=== PATIENT | female | born 1975 | race Caucasian/White ===

== ENCOUNTER 2017-03-05 22:32 | Emergency (ER) | payer MEDICAID ==
[2017-03-05] MEDS ORDERED: Sodium Chloride 0.9% 1,000 ML IV ONE (23:00)
[2017-03-05] MEDS ORDERED: Ondansetron 4 MG/2 ML SDV IVPUSH ONE (23:02)
[2017-03-05] MEDS ORDERED: HYDROmorphone 2 MG/ML SDV IVPUSH ONE (23:04)
[2017-03-06] MEDS ORDERED: HYDROmorphone 2 MG/ML SDV IM ONE (00:41)
[2017-03-06] MEDS ORDERED: HYDROmorphone 2 MG/ML SDV IVPUSH ONE (00:48)
--- NOTE | 2017-03-06 01:20 | EDM.PDOC ---
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 She saw Dr. Reeder one day ago and she had an ultrasound today on 03-05-17 that showed an ovarian cyst. She is not getting much relief with Ibuprofen and would like something more for pain relief as her ovarian cysts resolve. No urinary tract symptoms, fever or chills and no nausea or vomiting. 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 - Related Data Allergies Allergy/AdvReac Type Severity Reaction Status Date / Time amoxicillin Allergy Hives Verified 03/05/17 22:44 rizatriptan benzoate Allergy Hives Verified 03/05/17 22:44 [From Maxalt] sumatriptan [From Imitrex] Allergy Hives Verified 03/05/17 22:44 sumatriptan succinate Allergy Hives Verified 03/05/17 22:44 [From Imitrex] Home Meds: Home Meds Amphetamine/Dextroamphetamine [Adderall XR] 30 mg PO DAILY 07/22/15 [History] Ibuprofen 600 mg PO TID PRN 07/22/15 [History] Lurasidone [Latuda] 20 mg PO DAILY 07/22/15 [History] Venlafaxine [Effexor XR] 150 mg PO DAILY 07/22/15 [History] Albuterol Sulfate [Proair Hfa] 2 puff IH Q4H PRN 03/03/16 [History] Eletriptan HBr [Relpax] 40 mg PO ASDIRECTED 03/03/16 [History] Past Medical History HEENT History: Reports: Allergic Rhinitis, Impaired Vision Respiratory History: Reports: Asthma, Bronchitis, Recurrent, SOB Gastrointestinal History: Reports: Gastritis, GERD 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 Musculoskeletal History: Reports: Back Pain, Chronic, Fibromyalgia, Other (See Below) Other Musculoskeletal History: SCOLIOSIS, DEGENERATIVE DISK DISEASE, MYALGIA ET MYOSITIS Neurological History: Reports: Migraines, Seizure Psychiatric History: Reports: ADHD, Depression Hematologic History: Reports: Other (See Below) Other Hematologic History: HEMORRHAGIC DIATHESIS - Past Surgical History GI Surgical History: Reports: Hernia, Abdominal, Other (See Below) Musculoskeletal Surgical History: Reports: Arthroscopic Knee, Other (See Below) Social & Family History - Tobacco Use Smoking Status *Q: Current Every Day Smoker Years of Tobacco use: 20 Packs/Tins Daily: 1 Used Tobacco, but Quit: No Second Hand Smoke Exposure: Yes - Caffeine Use Caffeine Use: Reports: Coffee - Alcohol Use Days Per Week of Alcohol Use: 0 Number of Drinks Per Day: 0 Total Drinks Per Week: 0 - Recreational Drug Use Recreational Drug Use: No - Living Situation & Occupation Living situation: Reports: ED ROS GENERAL - Review of Systems Review Of Systems: See Below Constitutional: Reports: No Symptoms HEENT: Reports: No Symptoms Respiratory: Reports: No Symptoms Cardiovascular: Reports: No Symptoms Endocrine: Reports: No Symptoms GI/Abdominal: Reports: Abdominal Pain (As per HPI) : Reports: Hematuria Musculoskeletal: Reports: No Symptoms Skin: Reports: No Symptoms Neurological: Reports: No Symptoms Psychiatric: Reports: No Symptoms Hematologic/Lymphatic: Reports: No Symptoms Immunologic: Reports: No Symptoms ED EXAM, GI/ABD - Physical Exam Exam: See Below Exam Limited By: No Limitations General Appearance: Alert, WD/WN, No Apparent Distress Eyes: Bilateral: Normal Appearance, EOMI Ears: Normal External Exam, Normal Canal, Hearing Grossly Normal, Normal TMs Nose: Normal Inspection, Normal Mucosa, No Blood Throat/Mouth: Normal Inspection, Normal Lips, Normal Teeth, Normal Gums, Normal Oropharynx, Normal Voice, No Airway Compromise Head: Atraumatic, Normocephalic Neck: Normal Inspection, Supple, Non-Tender, Full Range of Motion Respiratory/Chest: No Respiratory Distress, Lungs Clear, Normal Breath Sounds, No Accessory Muscle Use, Chest Non-Tender Cardiovascular: Normal Peripheral Pulses GI/Abdominal Exam: Soft, No Organomegaly, No Distention, No Abnormal Bruit, No Mass, Pelvis Stable, Tender (Over bladder area) Course - Vital Signs Text/Narrative:: Uneventful ED course. She was given a liter bolus of Normal Saline, Zofran IV and IV Dilaudid and that made her pain go away. Her labs were normal and the UA did not show UTI but did show blood from her vaginal bleeding. She will be given Tramadol 50 mg po q 4 hours prn pain and she will also take Ibuprofen 800 mg po q 6 hours and Tylenol 500 mg po q 4 hours. She will follow up with Dr. Stone in 2 days to go over all of her results and to formulate her management plan. Last Recorded V/S: Last Vital Signs Temp 36.2 C 03/05/17 22:35 Pulse 107 H 03/05/17 22:35 Resp 18 03/05/17 22:35 BP 148/103 H 03/05/17 22:35 Pulse Ox 100 03/05/17 22:35 - Orders/Labs/Meds Labs: Laboratory Tests 03/05/17 03/05/17 03/05/17 Range/Units 23:05 23:05 23:05 WBC 6.5 (4.5-12.0) X10-3/uL RBC 4.48 (3.23-5.20) x10(6)uL Hgb 12.2 (11.5-15.5) g/dL Hct 36.7 (30.0-51.3) % MCV 81.9 (80-96) fL MCH 27.1 L (27.7-33.6) pg MCHC 33.1 (32.2-35.4) g/dL RDW 16.6 H (11.5-15.5) % Plt Count 368 (125-369) X10(3)uL MPV 7.5 (7.4-10.4) fL Neut % (Auto) 46.2 (46-82) % Lymph % (Auto) 39.2 H (13-37) % [place] % (Auto) 6.3 (4-12) % Eos % (Auto) 8 H (1.0-5.0) % Baso % (Auto) 1 (0-2) % Neut # (Auto) 3.0 (1.6-8.3) # Lymph # (Auto) 2.6 (0.6-5.0) # [place] # (Auto) 0.4 (0.0-1.3) # Eos # (Auto) 0.5 (0.0-0.8) # Baso # (Auto) 0.0 (0.0-0.2) # Sodium 138 (135-145) mmol/L Potassium 3.2 L (3.5-5.3) mmol/L Chloride 104 (100-110) mmol/L Carbon Dioxide 26 (23-29) mmol/L BUN 12 (5-20) mg/dL Creatinine 0.8 (0.6-1.3) mg/dL Est Cr Clr Drug Dosing TNP Estimated GFR (MDRD) > 60 (>60) BUN/Creatinine Ratio 15.0 (9-20) Glucose 113 (80-116) mg/dL Calcium 8.8 (8.6-10.2) mg/dL Total Bilirubin 0.9 (0.1-1.3) mg/dL AST 15 D (5-27) IU/L ALT 11 L D (14-26) IU/L Alkaline Phosphatase 79 (56-112) IU/L Total Protein 8.1 H (6.0-8.0) g/dL Albumin 4.5 (3.5-5.2) g/dL Globulin 3.6 g/dL Albumin/Globulin Ratio 1.3 HCG, Quant 2 (2.0 - ) mIU/mL Urine Color (YELLOW) Urine Appearance (CLEAR) Urine pH (5.0-6.5) Ur Specific [place] (1.010-1.025) Urine Protein (NEGATIVE) mg/dL Urine Glucose (UA) (NEGATIVE) mg/dL Urine Ketones (NEGATIVE) mg/dL Urine Occult Blood (NEGATIVE) Urine Nitrite (NEGATIVE) Urine Bilirubin (NEGATIVE) Urine Urobilinogen (NEGATIVE) mg/dL Ur Leukocyte Esterase (NEGATIVE) Urine RBC (0) Urine WBC (0) Ur Squamous Epith Cells (NS,R,O) Urine Bacteria (NS) Urine Mucus (NS) 03/06/17 Range/Units 00:22 WBC (4.5-12.0) X10-3/uL RBC (3.23-5.20) x10(6)uL Hgb (11.5-15.5) g/dL Hct (30.0-51.3) % MCV (80-96) fL MCH (27.7-33.6) pg MCHC (32.2-35.4) g/dL RDW (11.5-15.5) % Plt Count (125-369) X10(3)uL MPV (7.4-10.4) fL Neut % (Auto) (46-82) % Lymph % (Auto) (13-37) % [place] % (Auto) (4-12) % Eos % (Auto) (1.0-5.0) % Baso % (Auto) (0-2) % Neut # (Auto) (1.6-8.3) # Lymph # (Auto) (0.6-5.0) # [place] # (Auto) (0.0-1.3) # Eos # (Auto) (0.0-0.8) # Baso # (Auto) (0.0-0.2) # Sodium (135-145) mmol/L Potassium (3.5-5.3) mmol/L Chloride (100-110) mmol/L Carbon Dioxide (23-29) mmol/L BUN (5-20) mg/dL Creatinine (0.6-1.3) mg/dL Est Cr Clr Drug Dosing Estimated GFR (MDRD) (>60) BUN/Creatinine Ratio (9-20) Glucose (80-116) mg/dL Calcium (8.6-10.2) mg/dL Total Bilirubin (0.1-1.3) mg/dL AST (5-27) IU/L ALT (14-26) IU/L Alkaline Phosphatase (56-112) IU/L Total Protein (6.0-8.0) g/dL Albumin (3.5-5.2) g/dL Globulin g/dL Albumin/Globulin Ratio HCG, Quant (2.0 - ) mIU/mL Urine Color Yellow (YELLOW) Urine Appearance Clear (CLEAR) Urine pH 6.0 (5.0-6.5) Ur Specific [place] 1.025 (1.010-1.025) Urine Protein Negative (NEGATIVE) mg/dL Urine Glucose (UA) Normal (NEGATIVE) mg/dL Urine Ketones 15 H (NEGATIVE) mg/dL Urine Occult Blood Large H (NEGATIVE) Urine Nitrite Negative (NEGATIVE) Urine Bilirubin Negative (NEGATIVE) Urine Urobilinogen Normal (NEGATIVE) mg/dL Ur Leukocyte Esterase Negative (NEGATIVE) Urine RBC 10-20 H (0) Urine WBC 0-5 (0) Ur Squamous Epith Cells Moderate H (NS,R,O) Urine Bacteria Moderate H (NS) Urine Mucus Few H (NS) Meds: Medications Discontinued Medications Generic Name Dose Route Start Last Admin Trade Name Freq PRN Reason Stop Dose Admin Hydromorphone HCl 0.5 mg 03/05/17 23:04 03/05/17 23:44 Dilaudid IVPUSH 03/05/17 23:05 0.5 mg ONETIME ONE Administration Hydromorphone HCl 0.5 mg 03/06/17 00:48 03/06/17 00:48 Dilaudid IVPUSH 03/06/17 00:49 0.5 mg ONETIME ONE Administration Sodium Chloride 1,000 mls @ 1,000 mls/hr 03/05/17 23:00 03/05/17 23:43 Normal Saline IV 03/05/17 23:59 1,000 mls/hr .BOLUS ONE Administration Ondansetron HCl 4 mg 03/05/17 23:02 03/05/17 23:45 Zofran IVPUSH 03/05/17 23:03 4 mg ONETIME ONE Administration Departure - Departure Time of Disposition: 01:32 Disposition: Home, Self-Care 01 Condition: Good Clinical Impression: Ruptured ovarian cyst, Vaginal bleeding problems - Discharge Information Referrals: Gianfranco Anaya MD [Primary Care Provider] -
[2017-03-06] MEDS ORDERED: traMADol 50 MG Tab PO ONE (01:21)
[2017-03-06 05:31] VITALS: BP 151/99
== END 2017-03-06 01:44 | disposition home or self-care (01) ==
LOC: FB.ED 22:32
DX: N83.209 Unspecified ovarian cyst, unspecified side (principal); N93.9 Abnormal uterine and vaginal bleeding, unspecified; F17.210 Nicotine dependence, cigarettes, uncomplicated; F32.9 Major depressive disorder, single episode, unspecified; G43.909 Migraine, unspecified, not intractable, without status migrainosus; K21.9 Gastro-esophageal reflux disease without esophagitis; K29.70 Gastritis, unspecified, without bleeding; J45.909 Unspecified asthma, uncomplicated; Z88.1 Allergy status to other antibiotic agents; Z88.8 Allergy status to other drugs, medicaments and biological substances; Z79.899 Other long term (current) drug therapy; R10.2 Pelvic and perineal pain
CPT/HCPCS: 36415; 76830; 76857; 80053; 81001; 84702; 85025; 96361; 96374; 96375; 96376; 99283; A9270; J1170; J2405; J7040

== ENCOUNTER 2017-03-07 15:07 | Emergency (ER) | payer MEDICAID ==
[2017-03-07] MEDS ORDERED: traMADol 50 MG Tab PO ONE ×2 (15:08→15:29)
--- NOTE | 2017-03-07 15:20 | EDM.PDOC ---
ED HPI GENERAL MEDICAL PROBLEM - General Stated Complaint: STOMACH PAIN Time Seen by Provider: 03/07/17 15:19 Source of Information: Reports: Patient History Limitations: Reports: No Limitations - History of Present Illness INITIAL COMMENTS - FREE TEXT/NARRATIVE: 41 yo F who was seen 2 days ago and evaluated for lower abdominal pain that was deemed secondary to ovarian cyst. She was given some tramadol for pain which apparently helped with her pain. Presented to the ER today with Lower abdominal pain which she rates as 6/10. He intends to follow up in clinic tomorrow. No nausea or vomiting. Denied any fever. Presented to the ER on account of worsening of symptoms Onset: Gradual Duration: Day(s): (ongoing for the past 3-5 days) Location: Reports: Abdomen, Pelvis Quality: Reports: Ache Severity: Moderate Improves with: Reports: None Worsens with: Reports: None Associated Symptoms: Reports: No Other Symptoms - Related Data Allergies Allergy/AdvReac Type Severity Reaction Status Date / Time amoxicillin Allergy Hives Verified 03/07/17 15:22 rizatriptan benzoate Allergy Hives Verified 03/07/17 15:22 [From Maxalt] sumatriptan [From Imitrex] Allergy Hives Verified 03/07/17 15:22 sumatriptan succinate Allergy Hives Verified 03/07/17 15:22 [From Imitrex] Home Meds: Home Meds Amphetamine/Dextroamphetamine [Adderall XR] 30 mg PO DAILY 07/22/15 [History] Ibuprofen 600 mg PO TID PRN 07/22/15 [History] Lurasidone [Latuda] 20 mg PO DAILY 07/22/15 [History] Venlafaxine [Effexor XR] 150 mg PO DAILY 07/22/15 [History] Albuterol Sulfate [Proair Hfa] 2 puff IH Q4H PRN 03/03/16 [History] Eletriptan HBr [Relpax] 40 mg PO ASDIRECTED 03/03/16 [History] Past Medical History HEENT History: Reports: Allergic Rhinitis, Impaired Vision Respiratory History: Reports: Asthma, Bronchitis, Recurrent, SOB Gastrointestinal History: Reports: Gastritis, GERD 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 Musculoskeletal History: Reports: Back Pain, Chronic, Fibromyalgia, Other (See Below) Other Musculoskeletal History: SCOLIOSIS, DEGENERATIVE DISK DISEASE, MYALGIA ET MYOSITIS Neurological History: Reports: Migraines, Seizure Psychiatric History: Reports: ADHD, Depression Hematologic History: Reports: Other (See Below) Other Hematologic History: HEMORRHAGIC DIATHESIS - Past Surgical History GI Surgical History: Reports: Hernia, Abdominal, Other (See Below) Musculoskeletal Surgical History: Reports: Arthroscopic Knee, Other (See Below) Social & Family History - Tobacco Use Smoking Status *Q: Current Every Day Smoker Years of Tobacco use: 20 Packs/Tins Daily: 1 Used Tobacco, but Quit: No Second Hand Smoke Exposure: Yes - Caffeine Use Caffeine Use: Reports: Coffee - Alcohol Use Days Per Week of Alcohol Use: 0 Number of Drinks Per Day: 0 Total Drinks Per Week: 0 - Recreational Drug Use Recreational Drug Use: No - Living Situation & Occupation Living situation: Reports: ED ROS GENERAL - Review of Systems Review Of Systems: ROS reveals no pertinent complaints other than HPI. ED EXAM, GI/ABD - Physical Exam Exam: See Below Exam Limited By: No Limitations General Appearance: Alert, WD/WN, No Apparent Distress Eyes: Bilateral: EOMI Ears: Normal External Exam, Normal Canal, Hearing Grossly Normal, Normal TMs Nose: Normal Inspection, Normal Mucosa Throat/Mouth: Normal Inspection, Normal Lips, Normal Teeth, Normal Gums Head: Atraumatic, Normocephalic Neck: Normal Inspection, Supple, Non-Tender, Full Range of Motion Respiratory/Chest: No Respiratory Distress, Lungs Clear, Normal Breath Sounds Cardiovascular: Normal Peripheral Pulses, Regular Rate, Rhythm, No Edema, No Gallop, No JVD GI/Abdominal Exam: No Organomegaly, No Distention, No Abnormal Bruit, No Mass, Pelvis Stable, Tender Back Exam: Normal Inspection, Full Range of Motion Extremities: Normal Inspection, Normal Range of Motion, Non-Tender, No Pedal Edema Neurological: Alert, Oriented, CN II-XII Intact, Normal Cognition Psychiatric: Normal Affect, Normal Mood Skin Exam: Warm, Intact, Normal Color Lymphatic: No Adenopathy Course - Orders/Labs/Meds Meds: Medications Discontinued Medications Generic Name Dose Route Start Last Admin Trade Name Freq PRN Reason Stop Dose Admin Tramadol HCl 50 mg 03/07/17 15:29 Ultram PO 03/07/17 15:30 ONETIME ONE Departure - Departure Time of Disposition: 15:35 Disposition: Home, Self-Care 01 Clinical Impression: Abdominal pain Qualifiers: Abdominal location: lower abdomen, unspecified Qualified Code(s): R10.30 - Lower abdominal pain, unspecified - Discharge Information Instructions: Abdominal Pain, Adult, [id number] Referrals: Gianfranco Anaya MD [Primary Care Provider] - Forms: ED Department Discharge Additional Instructions: Follow with PCP Tramadol for pain Return if symptoms worsen Call your Physician or Return to Emergency Department if: * Your condition worsens in any way. * You develop fever greater than 100.4. * You have vomitting that does not stop with medications. * You have pain that is not controlled with medications.
[2017-03-07 15:40] VITALS: BP 140/92
== END 2017-03-07 15:48 | disposition home or self-care (01) ==
LOC: FB.ED 15:07
DX: R10.30 Lower abdominal pain, unspecified (principal); J45.909 Unspecified asthma, uncomplicated; K21.9 Gastro-esophageal reflux disease without esophagitis; G43.909 Migraine, unspecified, not intractable, without status migrainosus; F32.9 Major depressive disorder, single episode, unspecified; F17.210 Nicotine dependence, cigarettes, uncomplicated; Z88.8 Allergy status to other drugs, medicaments and biological substances; Z88.1 Allergy status to other antibiotic agents; Z79.899 Other long term (current) drug therapy
CPT/HCPCS: 99283; A9270

== ENCOUNTER 2017-04-21 14:22 | Emergency (ER) | payer MEDICAID ==
--- NOTE | 2017-04-21 14:35 | EDM.PDOC ---
ED HPI GENERAL MEDICAL PROBLEM - General Stated Complaint: POST OP PAIN Time Seen by Provider: 04/21/17 14:22 Source of Information: Reports: Patient History Limitations: Reports: No Limitations - History of Present Illness INITIAL COMMENTS - FREE TEXT/NARRATIVE: 41 y.o.w.f came to the ed with family due to gen abdominal pain, more so on the lower abd, after a hysterectomy last wednesday at [facility]. Pt received 30 tabl of [place] and she took those every 4 hours. 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 No N/V/D or dizziness or any other acute medial issues. BP 132/90 RR 17 pulse 105 temp 36.2 Pulse ox 97 Onset: Today Onset Date: 04/16/17 Onset Time: 08:00 Duration: Day(s):, Intermittent Location: Reports: Abdomen, Generalized Quality: Reports: Dull, Pressure, Same as Previous Episode Severity: Moderate Improves with: Reports: Rest Worsens with: Reports: Movement Context: Reports: Other (S/) Associated Symptoms: Reports: No Other Symptoms Vaginal Pain Score (Numeric/FACES): 7 - Related Data Allergies Allergy/AdvReac Type Severity Reaction Status Date / Time amoxicillin Allergy Hives Verified 04/21/17 15:05 rizatriptan benzoate Allergy Hives Verified 04/21/17 15:05 [From Maxalt] sumatriptan [From Imitrex] Allergy Hives Verified 04/21/17 15:05 sumatriptan succinate Allergy Hives Verified 04/21/17 15:05 [From Imitrex] Home Meds: Home Meds Venlafaxine [Effexor XR] 150 mg PO DAILY 07/22/15 [History] Albuterol Sulfate [Proair Hfa] 2 puff IH Q4H PRN 03/03/16 [History] Acetaminophen/HYDROcodone [[place] 325-5 MG] 1 tab PO Q4H PRN #10 tab 04/21/17 [Rx ] Azithromycin [IJD: Azithromycin] 250 mg PO ASDIRECTED 04/21/17 [History] Past Medical History HEENT History: Reports: Allergic Rhinitis, Impaired Vision Respiratory History: Reports: Asthma, Bronchitis, Recurrent, SOB Gastrointestinal History: Reports: Gastritis, GERD 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: Endometriosis Musculoskeletal History: Reports: Back Pain, Chronic, Fibromyalgia, Other (See Below) Other Musculoskeletal History: SCOLIOSIS, DEGENERATIVE DISK DISEASE, MYALGIA ET MYOSITIS Neurological History: Reports: Migraines, Seizure Psychiatric History: Reports: ADHD, Depression Hematologic History: Reports: Other (See Below) Other Hematologic History: HEMORRHAGIC DIATHESIS - Past Surgical History GI Surgical History: Reports: Hernia, Abdominal, Other (See Below) Musculoskeletal Surgical History: Reports: Arthroscopic Knee, Other (See Below) Social & Family History - Tobacco Use Smoking Status *Q: Current Every Day Smoker Years of Tobacco use: 20 Packs/Tins Daily: 1 Used Tobacco, but Quit: No Second Hand Smoke Exposure: Yes - Caffeine Use Caffeine Use: Reports: Coffee - Alcohol Use Days Per Week of Alcohol Use: 0 Number of Drinks Per Day: 0 Total Drinks Per Week: 0 - Recreational Drug Use Recreational Drug Use: No - Living Situation & Occupation Living situation: Reports: ED ROS GENERAL - Review of Systems Review Of Systems: See Below Constitutional: Reports: No Symptoms HEENT: Reports: No Symptoms Respiratory: Reports: No Symptoms Cardiovascular: Reports: No Symptoms Endocrine: Reports: No Symptoms GI/Abdominal: Reports: Abdominal Pain (lower abd. ) : Reports: No Symptoms Musculoskeletal: Reports: No Symptoms Skin: Reports: No Symptoms Neurological: Reports: No Symptoms Psychiatric: Reports: No Symptoms Hematologic/Lymphatic: Reports: No Symptoms Immunologic: Reports: No Symptoms ED EXAM, GI/ABD - Physical Exam Exam: See Below Exam Limited By: No Limitations General Appearance: Alert, WD/WN, Mild Distress Eyes: Bilateral: Normal Appearance Ears: Normal External Exam Nose: Normal Inspection Throat/Mouth: Normal Inspection Head: Atraumatic, Normocephalic Neck: Normal Inspection Respiratory/Chest: No Respiratory Distress, Lungs Clear, Normal Breath Sounds, No Accessory Muscle Use, Chest Non-Tender Cardiovascular: Normal Peripheral Pulses, Regular Rate, Rhythm, No Edema, No Gallop, No JVD, No Murmur GI/Abdominal Exam: Abnormal Bowel Sounds (hypoactive) (Female) Exam: Deferred Rectal (Female) Exam: Deferred Back Exam: Normal Inspection Extremities: Normal Inspection, Normal Range of Motion, Non-Tender, No Pedal Edema Neurological: Alert, Oriented, CN II-XII Intact, Normal Cognition, Normal Gait Psychiatric: Normal Affect, Normal Mood Skin Exam: Warm, Dry, Intact, Normal Color, Other (well healing surgical wounds) Lymphatic: No Adenopathy Course - Vital Signs Text/Narrative:: 41 y.o.w.f came to the ed with family due to gen abdominal pain, more so on the lower abd, after a hysterectomy last wednesday at [facility]. Pt received 30 tabl of [place] and she took those every 4 hours. 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 No N/V/D or dizziness or any other acute medial issues. BP 132/90 RR 17 pulse 105 temp 36.2 Pulse ox 97 PE: [place] obese.Nl BS, lower ab. tenderness, well healing surgical wounds Imaging: Abd flat/upright: No constipation NAD as per RAD Labs: UA neg for uti. Impression: Abd wall pain after Hysterectomy Tx: No pain meds given in the ed Plan: D/C with instructions Last Recorded V/S: Last Vital Signs Temp 36.5 C 04/21/17 15:09 Pulse 100 04/21/17 16:44 Resp 18 04/21/17 15:09 BP 128/78 04/21/17 16:44 Pulse Ox 96 04/21/17 15:09 - Orders/Labs/Meds Orders: Active Orders 24 hr Category Date Time Status Abdomen 2V AP Flat Upright [CR] Stat Exams 04/21/17 14:33 Taken Labs: Laboratory Tests 04/21/17 Range/Units 14:58 Urine Color Yellow (YELLOW) Urine Appearance Clear (CLEAR) Urine pH 7.0 H (5.0-6.5) Ur Specific [place] 1.010 (1.010-1.025) Urine Protein Negative (NEGATIVE) mg/dL Urine Glucose (UA) Normal (NEGATIVE) mg/dL Urine Ketones Negative (NEGATIVE) mg/dL Urine Occult Blood Negative (NEGATIVE) Urine Nitrite Negative (NEGATIVE) Urine Bilirubin Negative (NEGATIVE) Urine Urobilinogen Normal (NEGATIVE) mg/dL Ur Leukocyte Esterase Negative (NEGATIVE) Urine RBC 0-5 (0) Urine WBC 0-5 (0) Ur Squamous Epith Cells Moderate H (NS,R,O) Urine Bacteria Moderate H (NS) Urine Mucus Moderate H (NS) Departure - Departure Time of Disposition: 16:34 Disposition: Home, Self-Care 01 Condition: Good Clinical Impression: H/O: hysterectomy, Abdominal wall pain in both lower quadrants - Discharge Information Prescriptions: Acetaminophen/HYDROcodone [[place] 325-5 MG] 1 tab PO Q4H PRN #10 tab PRN Reason: for severe pain only Instructions: Acetaminophen; Hydrocodone tablets or capsules Referrals: Gianfranco Anaya MD [Primary Care Provider] - Forms: ED Department Discharge Additional Instructions: Please f/u with your PMD/Surgeon, increase water intake, tylenol/motrin for moderate pain, [place] for severe pain only. Please come back if your symptoms get acutely worse. - My Orders Last 24 Hours: My Active Orders 04/21/17 14:33 Abdomen 2V AP Flat Upright [CR] Stat - Assessment/Plan Last 24 Hours: My Active Orders 04/21/17 14:33 Abdomen 2V AP Flat Upright [CR] Stat
[2017-04-21 16:45] VITALS: BP 128/78
--- NOTE | 2017-04-22 09:30 | CR ---
INDICATION: Abdomen pain 6 days after hysterectomy. Pressure and cramping lower abdominal midline. ABDOMEN: Four images of the abdomen were obtained in supine and upright projections, revealing no evidence of free air or obstruction. A nonspecific pattern of gas and feces is noted. A mild dextroconcave rotoscoliosis of the upper middle lumbar spine is also noted. Degenerative disk disease is suggested at L4-5. No definite organomegaly, mass lesions, or free fluid collections were identified. No definite pathologic calcifications were seen. There does appear to be some stool in the area of the rectum. A normal amount of stool is present in the colon. IMPRESSION: Nonacute abdomen - nonspecific abdomen. If symptoms persist and depending upon clinical and laboratory correlation, additional examination may be warranted, such as repeat abdomen x-rays or possibly CT of the abdomen and pelvis. MTDD
== END 2017-04-21 16:42 | disposition home or self-care (01) ==
LOC: FB.ED 14:22
DX: G89.18 Other acute postprocedural pain (principal); R10.31 Right lower quadrant pain; R10.32 Left lower quadrant pain; Z90.710 Acquired absence of both cervix and uterus; J45.909 Unspecified asthma, uncomplicated; F32.9 Major depressive disorder, single episode, unspecified; F17.210 Nicotine dependence, cigarettes, uncomplicated; Z79.899 Other long term (current) drug therapy; Z88.1 Allergy status to other antibiotic agents; Z88.8 Allergy status to other drugs, medicaments and biological substances
CPT/HCPCS: 74020; 81001; 99284

== ENCOUNTER 2017-04-23 17:28 | Emergency (ER) | payer MEDICAID ==
[2017-04-23] MEDS ORDERED: Ondansetron 4 MG Tab.DIS PO ONE (18:28)
[2017-04-23] MEDS ORDERED: Ketorolac 60 MG/2 ML SDV IM ONE (18:28)
--- NOTE | 2017-04-23 18:59 | EDM.PDOC ---
ED HPI GENERAL MEDICAL PROBLEM - General Chief Complaint: Abdominal Pain Stated Complaint: PAIN, NAUSEA Time Seen by Provider: 04/23/17 18:54 Source of Information: Reports: Patient History Limitations: Reports: No Limitations - History of Present Illness INITIAL COMMENTS - FREE TEXT/NARRATIVE: c/o abd pain lab hys 1w ago in [place] with Dr Castle for menorhagia taking HC for abd pain states she still has pain altho appears to be healing well, BM daily x 5d anxious some N, no N meds Treatments DRUG CLERK: Reports: Other (see below) Other Treatments DRUG CLERK: Pain meds Abdomen Pain Score (Numeric/FACES): 8 - Related Data Allergies Allergy/AdvReac Type Severity Reaction Status Date / Time amoxicillin Allergy Hives Verified 04/23/17 17:57 rizatriptan benzoate Allergy Hives Verified 04/23/17 17:57 [From Maxalt] sumatriptan [From Imitrex] Allergy Hives Verified 04/23/17 17:57 sumatriptan succinate Allergy Hives Verified 04/23/17 17:57 [From Imitrex] Home Meds: Home Meds Venlafaxine [Effexor XR] 150 mg PO DAILY 07/22/15 [History] Albuterol Sulfate [Proair Hfa] 2 puff IH Q4H PRN 03/03/16 [History] Acetaminophen/HYDROcodone [Griffith 325-5 MG] 1 tab PO Q4H PRN #10 tab 04/21/17 [Rx ] Metoclopramide HCl 10 mg PO Q6H PRN #10 tablet 04/23/17 [Rx] Past Medical History HEENT History: Reports: Allergic Rhinitis, Impaired Vision Respiratory History: Reports: Asthma, Bronchitis, Recurrent, SOB Gastrointestinal History: Reports: Gastritis, GERD Genitourinary History: Reports: None 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: Endometriosis Musculoskeletal History: Reports: Back Pain, Chronic, Fibromyalgia, Other (See Below) Other Musculoskeletal History: SCOLIOSIS, DEGENERATIVE DISK DISEASE, MYALGIA ET MYOSITIS Neurological History: Reports: Migraines, Seizure Psychiatric History: Reports: ADHD, Depression Hematologic History: Reports: Other (See Below) Other Hematologic History: HEMORRHAGIC DIATHESIS - Infectious Disease History Infectious Disease History: Reports: Chicken Pox - Past Surgical History HEENT Surgical History: Reports: None Respiratory Surgical History: Reports: None GI Surgical History: Reports: Hernia, Abdominal, Other (See Below) Female Surgical History: Reports: Hysterectomy Neurological Surgical History: Reports: None Musculoskeletal Surgical History: Reports: Arthroscopic Knee, Other (See Below) Social & Family History - Family History Family Medical History: Noncontributory - Tobacco Use Smoking Status *Q: Current Every Day Smoker Years of Tobacco use: 2 Packs/Tins Daily: 0.5 Used Tobacco, but Quit: No Second Hand Smoke Exposure: No - Caffeine Use Caffeine Use: Reports: Coffee, Soda - Alcohol Use Days Per Week of Alcohol Use: 0 Number of Drinks Per Day: 0 Total Drinks Per Week: 0 - Recreational Drug Use Recreational Drug Use: No - Living Situation & Occupation Living situation: Reports: ED ROS GENERAL - Review of Systems Review Of Systems: See Below Constitutional: Reports: No Symptoms HEENT: Reports: No Symptoms Respiratory: Reports: No Symptoms Cardiovascular: Reports: No Symptoms Endocrine: Reports: No Symptoms GI/Abdominal: Reports: Abdominal Pain, Nausea : Reports: No Symptoms Musculoskeletal: Reports: No Symptoms Skin: Reports: No Symptoms Neurological: Reports: No Symptoms Psychiatric: Reports: No Symptoms Hematologic/Lymphatic: Reports: No Symptoms Immunologic: Reports: No Symptoms ED EXAM, GI/ABD - Physical Exam Exam: See Below Exam Limited By: No Limitations General Appearance: Alert, WD/WN, Anxious Eyes: Bilateral: Normal Appearance, EOMI Ears: Normal External Exam, Hearing Grossly Normal Nose: Normal Inspection, Normal Mucosa, No Blood Throat/Mouth: Normal Inspection, Normal Lips, Normal Teeth, Normal Gums, Normal Oropharynx, Normal Voice, No Airway Compromise Head: Atraumatic, Normocephalic Neck: Normal Inspection, Supple, Non-Tender Respiratory/Chest: No Respiratory Distress, Lungs Clear, Normal Breath Sounds, No Accessory Muscle Use, Chest Non-Tender Cardiovascular: Regular Rate, Rhythm, No Edema, No Gallop, No Rub GI/Abdominal Exam: Normal Bowel Sounds, Soft, No Organomegaly, No Distention, No Mass, Other (slight tender suprapubic area, very soft, no masses, no CVAT b/l ) Back Exam: Normal Inspection, Full Range of Motion, NT Extremities: Normal Inspection, Normal Range of Motion, Non-Tender, No Pedal Edema Neurological: Alert, Oriented, CN II-XII Intact, Normal Cognition, No Motor/ Sensory Deficits Psychiatric: Anxious Skin Exam: Warm, Dry, Intact, Normal Color, No Rash Lymphatic: No Adenopathy Course - Vital Signs Last Recorded V/S: Last Vital Signs Temp 36.6 C 04/23/17 17:35 Pulse 107 H 04/23/17 17:35 Resp 20 04/23/17 17:35 BP 149/105 H 04/23/17 17:35 Pulse Ox 100 04/23/17 17:35 - Orders/Labs/Meds Labs: Laboratory Tests 04/23/17 04/23/17 Range/Units 18:35 18:35 WBC 8.8 (4.5-12.0) X10-3/uL RBC 4.36 (3.23-5.20) x10(6)uL Hgb 11.8 (11.5-15.5) g/dL Hct 35.8 (30.0-51.3) % MCV 82.1 (80-96) fL MCH 27.0 L (27.7-33.6) pg MCHC 32.8 (32.2-35.4) g/dL RDW 14.9 (11.5-15.5) % Plt Count 365 (125-369) X10(3)uL MPV 8.0 (7.4-10.4) fL Neut % (Auto) 52.9 (46-82) % Lymph % (Auto) 23.3 (13-37) % Hancock % (Auto) 7.4 (4-12) % Eos % (Auto) 15 H (1.0-5.0) % Baso % (Auto) 1 (0-2) % Neut # (Auto) 4.5 (1.6-8.3) # Lymph # (Auto) 2.1 (0.6-5.0) # Hancock # (Auto) 0.7 (0.0-1.3) # Eos # (Auto) 1.4 H (0.0-0.8) # Baso # (Auto) 0.1 (0.0-0.2) # Sodium 137 (135-145) mmol/L Potassium 4.3 D (3.5-5.3) mmol/L Chloride 101 (100-110) mmol/L Carbon Dioxide 28 (23-29) mmol/L BUN 15 (5-20) mg/dL Creatinine 0.6 (0.6-1.3) mg/dL Est Cr Clr Drug Dosing 111.03 mL/min Estimated GFR (MDRD) > 60 (>60) BUN/Creatinine Ratio 25.0 H (9-20) Glucose 116 (80-116) mg/dL Calcium 9.1 (8.6-10.2) mg/dL Meds: Medications Discontinued Medications Generic Name Dose Route Start Last Admin Trade Name Freq PRN Reason Stop Dose Admin Ketorolac Tromethamine 60 mg 04/23/17 18:28 04/23/17 18:40 Toradol IM 04/23/17 18:29 60 mg ONETIME ONE Administration Ondansetron HCl 4 mg 04/23/17 18:28 04/23/17 18:39 Zofran Odt PO 04/23/17 18:29 4 mg ONETIME ONE Administration - Re-Assessments/Exams Free Text/Narrative Re-Assessment/Exam: 04/23/17 19:00 healing well Departure - Departure Time of Disposition: 19:00 Disposition: Home, Self-Care 01 Condition: Good Clinical Impression: Abdominal pain Qualifiers: Abdominal location: lower abdomen, unspecified Qualified Code(s): R10.30 - Lower abdominal pain, unspecified - Discharge Information Prescriptions: Metoclopramide HCl 10 mg PO Q6H PRN #10 tablet PRN Reason: Nausea Referrals: Gianfranco Anaya MD [Primary Care Provider] - Additional Instructions: For pain, take ibuprofen 200 mg 3 tabs 4 times a day for the next several days. For pain, as needed, take the hydrocodone at bedtime. For nausea, take metoclopramide 10 mg 1 tab every 6 hours as needed. Keep your follow up appointment with your surgeon. Call your Physician or Return to Emergency Department if: * Your condition worsens in any way. * You develop fever greater than 100.4. * You have vomitting that does not stop with medications. * You have pain that is not controlled with medications.
[2017-04-23 19:14] VITALS: BP 116/80
== END 2017-04-23 19:12 | disposition home or self-care (01) ==
LOC: FB.ED 17:28
DX: R10.30 Lower abdominal pain, unspecified (principal); F17.210 Nicotine dependence, cigarettes, uncomplicated; J45.909 Unspecified asthma, uncomplicated; Z79.899 Other long term (current) drug therapy; Z88.1 Allergy status to other antibiotic agents; Z88.8 Allergy status to other drugs, medicaments and biological substances; Z90.710 Acquired absence of both cervix and uterus
CPT/HCPCS: 36415; 80048; 85025; 96372; 99284; A9270; J1885

== ENCOUNTER 2017-10-02 15:31 | Emergency (ER) | payer MEDICAID ==
[2017-10-02 17:08] VITALS: BP 130/91
--- NOTE | 2017-10-03 11:03 | ER ---
DATE SEEN: 10/02/2017 TIME SEEN: The patient was seen at 1640 hours. HISTORY OF PRESENT ILLNESS: This 42-year-old single 2, para 2 woman, who has a history of migraines, obesity, hysterectomy, and lives with somebody else, nonsmoker, comes in because she is anxious because she is going to be admitted to psychiatric care at [facility] in [place] on the . As she is very anxious about this, takes Effexor 150 mg a day for depression and has been out of her temazepam 22.5 mg daily. She takes gabapentin 300 mg daily. She denies diabetes, hyperthyroidism, tachycardia, chest pain, shortness of breath, but she notes she has a slightly fast heart rate. She denies diaphoresis, abdominal discomfort, change of bowels, primary diarrhea, constipation, or back pain, arm pain, or muscle pain, or previous seizure, head injury, or headache. ALLERGIES: She is allergic to Amoxil, rizatriptan, sumatriptan succinate and short-acting. REVIEW OF SYSTEMS: Otherwise review of systems negative except as noted above. PHYSICAL EXAMINATION: VITAL SIGNS: 129/99, heart rate 111, respirations 22. I repeated the heart rate and examination. Heart rate is 110 to 106. GENERAL: Anxious, overweight woman, who is trying to get up and move around quickly. She has fair eye contact. HEENT: Her pupils are dilated to 8 mm. Nonresponsive to light. TMs negative. Pharynx without abnormality. Gag in place. Mucosa is normal. Nares negative. LUNGS: Clear without rales, rhonchi, or wheezes. HEART: S1, S2. No irregular rate and rhythm. Mild sinus tachycardia. ABDOMEN: Soft. No guarding. No hepatosplenomegaly. No masses in the abdomen. EXTREMITIES: Without edema. NEURO: Deep tendon reflexes normoactive, upper and lower extremities. Cranial nerves 2 through 12 intact. Gait intact. Strength intact. No pronator drift. ASSESSMENT: Anxiety with underlying panic disorder features, is going for psychiatric care at [facility] on Wednesday, October 04. PLAN: Tide over. She has Klonopin 0.25 mg, take 1/2 to 1 tablet every 6 hours p.r.n., 4 tablets given, the patient has a prescription. Followup with her anxiety treatment team in [facility] on Wednesday. /[id number] JAYSON/RADU
== END 2017-10-02 17:05 | disposition home or self-care (01) ==
LOC: FB.ED 15:31
DX: F41.0 Panic disorder [episodic paroxysmal anxiety] (principal); Z88.1 Allergy status to other antibiotic agents; Z88.8 Allergy status to other drugs, medicaments and biological substances; Z90.710 Acquired absence of both cervix and uterus
CPT/HCPCS: 99282

== ENCOUNTER 2018-08-24 06:32 | Day surgery (SDC) | payer MEDICAID ==
[~2018-08-24 06:32] MED LIST: Lactated Ringers 1,000 ML IV SCH
[2018-08-24] MEDS ORDERED: Lidocaine 2% 100 MG/5 ML Syringe IVPUSH ONE (06:33)
[2018-08-24] MEDS ORDERED: Propofol 200 MG/20 ML SDV IV ONE (06:33)
[2018-08-24] MEDS ORDERED: Albuterol 8 GM Inhaler INH ONE (06:33)
[2018-08-24] MEDS ORDERED: Midazolam 1 MG/ML 2 ML SDV IV ONE (06:33)
[2018-08-24] MEDS ORDERED: Sodium Chloride 0.9% 10 ML Syringe FLUSH PRN (06:45)
[2018-08-24] MEDS: Lactated Ringers 1,000 ML IV SCH (07:27)
--- NOTE | 2018-08-24 08:06 | PCM.OPNOTE ---
- General Post-Op/Procedure Note Date of Surgery/Procedure: 08/24/18 Operative Procedure(s): egd with bx Findings: gastroduodenitis hiatal hernia Pre Op Diagnosis: gerd Post-Op Diagnosis: gastroduodenitis. hiatal hernia Anesthesia Technique: MAC Primary Surgeon: Vamshi Larose Anesthesia Provider: Yuki Lux Pathology: stomach and duodenum Complications: None Condition: Good Free Text/Narrative:: see dictation
[2018-08-24 08:45] VITALS: BP 109/68
--- NOTE | 2018-08-24 10:34 | OR ---
DATE OF OPERATION: 08/24/2018 SURGEON: Vamshi Larose MD PROCEDURE PERFORMED: Esophagogastroduodenoscopy with cold forceps biopsy. PREOPERATIVE DIAGNOSIS: Gastroesophageal reflux disease. POSTOPERATIVE DIAGNOSES: 1. Gastroduodenitis. 2. Hiatal hernia. INDICATIONS FOR PROCEDURE: This is a 43-year-old white female who has had some issues with epigastric discomfort. She was offered nausea and vomiting. She was offered an upper endoscopy. DESCRIPTION OF OPERATION: After an excellent IV sedation was administered, the bite block was inserted. The flexible endoscope was passed without difficulty down the patient's esophagus into the stomach. Stomach was insufflated. Scope passed through the pylorus to second portion of duodenum and slowly withdrawn. The following findings were noted. First portion of the duodenum, inflammation. Biopsies taken. Stomach demonstrated small hiatal hernia. Diffuse gastritis was noted. Biopsies and photo were taken. Esophagus, GE junction 30 cm. No marked erythema noted. Stomach was deflated. Scope was removed. Results by letter. /[id number] /MODL
== END 2018-08-24 08:40 | disposition home or self-care (01) ==
LOC: FB.SDS 06:32
PROVIDERS: ATTEND Surgery
DX: K21.9 Gastro-esophageal reflux disease without esophagitis (principal); K29.50 Unspecified chronic gastritis without bleeding; K44.9 Diaphragmatic hernia without obstruction or gangrene; J45.909 Unspecified asthma, uncomplicated; F17.210 Nicotine dependence, cigarettes, uncomplicated; Z79.899 Other long term (current) drug therapy; Z88.8 Allergy status to other drugs, medicaments and biological substances
CPT/HCPCS: 43239; 88305; 88342; A9270; J2001; J2250; J2704; J7120